=== PATIENT | male | born 2000 | race Caucasian/White ===

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

== ENCOUNTER 2020-09-21 05:49 | Day surgery (SDC) | payer OTHER ==
[~2020-09-21] VITALS: Ht 180.3 cm; Wt 53.2 kg
[~2020-09-21 05:49] MED LIST: ROBAXIN-750750 MG PO; VOLTAREN75 MG PO
[2020-09-21 06:41] VITALS: BP 116/73; Ht 180.3 cm; Wt 53.2 kg
--- NOTE | 2020-09-21 12:02 | NUR ---
PATIENT AMBULATES TO BATHROOM AND VOIDS IN TOILET WITHOUT DIFFICULTY. RIGHT FOREARM PIV DC'D WITH TIP INTACT. DISCHARGE INSTRUCTIONS REVIEWED WITH PATIENT AND SIGNIFICANT OTHER. 1210 DISCHARGED HOME VIA WHEELCHAIR TO PRIVATE VEHICLE WITH SIGNIFICANT OTHER
== END 2020-09-21 12:10 | disposition home or self-care (01) ==
LOC: D.OPS 05:49
PROVIDERS: ATTEND Surgery
DX: K40.90 Unilateral inguinal hernia, without obstruction or gangrene, not specified as recurrent (principal)